=== PATIENT | male | born 1955 | race Caucasian/White ===

== ENCOUNTER → 2019-03-03 | Day surgery (SDC) | payer OTHER ==
[~2019-03-03] MED LIST: GABA600T7 PO; IV RINGERS,LACTATED 1000ML 1,000 ML IV SCH; LAMO100T PO; LIDOCAINE 1% PF 2 ML VIAL. ID PRN; LIDOCAINE 2% PF 5 ML VIAL. ONE; MIDAZOLAM HCL/PF 2 MG/2 ML VIAL. IV PRN; PROPOFOL 60 ML IV ONE; fentaNYL PF VIAL 100 MCG/2 ML VIAL IV PRN
[2019-03-03 11:30] VITALS: BP 142/87
--- NOTE | 2019-03-06 17:06 | PATHOLOGY ---
[facility] Accession Number: [id number] . 01 Material submitted: . colon - LEFT COLON COLITIS. Modifiers: left . 01 Clinical history: . Melena . 02 Diagnosis: Colonic mucosa, left colon biopsies: - Patchy moderate to marked active chronic colitis without granulomas or specific features. See comment. (JPM:[facility] 03/06/2019) P/03/06/2019 . 02 Comment: Sections of the left colon biopsies reveal multiple segments of colonic mucosa. Several of the biopsy segments reveal essentially normal colonic mucosa focally containing mucosal-associated lymphoid aggregates. The remaining biopsy segments show moderate to marked active chronic inflammation with foci of acute cryptitis. There are no granulomas or specific features. The findings are suggestive of patchy involvement by chronic idiopathic inflammatory bowel disease. On occasion, prolonged bacterial or other infections can give similar histologic changes. Correlate clinically. (JPM:[facility] 03/06/2019) . 02 Electronically signed: . Ayush Chu MD, Pathologist NPI- [id number] . 01 Gross description: . Received in formalin labeled "Maxwell Stern, left colon colitis," are multiple segments of hairston soft tissue measuring 1.5 x 0.5 x 0.1 cm in aggregate dimensions. The specimen is filtered and entirely submitted in cassette A1. (TSD; 03/03/2019) TOB/TOB . 02 Pathologist provided ICD-10: K52.9 . 02 CPT . 381165 Specimen Comment: A courtesy copy of this report has been sent to Specimen Comment: [phone], . Specimen Comment: Report sent to / DR PAGE Performed at: [address], [place] [id number] MD Chris Hook MD Phone: [phone] Performed at: [address] [id number] MD Ayush Chu MD Phone: [phone]
== END ==
LOC: SURG 08:38
PROVIDERS: ATTEND Internal Medicine Gastroenterology
DX: K51.80 Other ulcerative colitis without complications (principal); K57.30 Diverticulosis of large intestine without perforation or abscess without bleeding; K64.0 First degree hemorrhoids; K31.89 Other diseases of stomach and duodenum; K52.9 Noninfective gastroenteritis and colitis, unspecified; E11.9 Type 2 diabetes mellitus without complications; E78.5 Hyperlipidemia, unspecified; I10 Essential (primary) hypertension; F15.90 Other stimulant use, unspecified, uncomplicated; Z87.39 Personal history of other diseases of the musculoskeletal system and connective tissue; Z72.89 Other problems related to lifestyle; Z87.891 Personal history of nicotine dependence; Z98.890 Other specified postprocedural states; Z79.84 Long term (current) use of oral hypoglycemic drugs
CPT/HCPCS: 43235; 45380; 88305; J2001; J2704